=== PATIENT | male | born 1950 | race Caucasian/White ===

== ENCOUNTER 2017-08-05 07:21 | Day surgery (SDC) | payer MEDICARE, BC ==
[2017-08-02 09:36] VITALS: BMI 28.3
[2017-08-05] MEDS ORDERED: CEFAZOLIN/Water 2 GM/20 ML SYRINGE ONE (09:54)
[2017-08-05 10:06] LABS: #Eosinphils 0.1 thou/uL (0.0-0.7); #Lymphocytes 1.2 thou/uL (1.20-3.40); #Monocytes 0.5 thou/uL (0.11-0.59); #Neutrophils 2.9 thou/uL (1.40-6.50); %Basophils 0.7 % (0.0-1.0); %Eosinophils 2.2 % (0.0-10.0); %Lymphocytes 24.6 % (21.0-51.0); %Monocytes 10.3 % (0.0-10.0); %Neutrophils 62.1 % (42.0-75.0); Hemoglobin 13.6 g/dL (14.0-18.0); Mean Corpuscular HGB CONC 34.9 g/dL (32.0-36.0); Mean Corpuscular Hemoglobin 31.9 pg (27.0-31.0); Mean Corpuscular Volume 91.5 fl (80.0-94.0); Mean Platelet Volume 9.1 fL (7.4-10.4); Platelet Count 137 thou/uL (130-400); RBC Distribution Width 11.5 % (11.5-14.5); Red Blood Cell (RBC) Count 4.25 mill/uL (4.70-6.10); White Blood Cell (WBC) Count 4.7 thou/uL (4.8-10.8)
[2017-08-05 10:30] LABS: Anion Gap 12 mmol/L (10-20); BUN (Urea Nitrogen) 15 mg/dL (8.4-25.7); Calc. Creatinine Clearance 123 mL/min (70-130); Calcium 9.4 mg/dL (7.8-10.44); Carbon Dioxide 22 mmol/L (23-31); Chloride 110 mmol/L (98-107); Estimated GFR-MDRD Greater than 90; Glucose 136 mg/dL (80-115); Potassium 4.1 mmol/L (3.5-5.1); Sodium 140 mmol/L (136-145)
[2017-08-05] MEDS ORDERED: Fentanyl 250 MCG/5 ML VIAL ONE ×2 (13:02→16:09)
[2017-08-05] MEDS ORDERED: Lidocaine 2% Jelly 5 ML TUBE ONE (13:07)
[2017-08-05] MEDS ORDERED: Phenylephrine HCL 10 MG/ML VIAL ONE (13:09)
--- NOTE | 2017-08-05 14:38 | OP ---
DATE OF PROCEDURE: 08/05/2017 SURGEON: Carlos Alberto Cazares M.D. STATISTICAL ASSISTANT: Xavier Quiros PROCEDURE: L3-4 laminectomy. PROCEDURE IN DETAIL: The patient was brought to the operating room and intubated. He was rolled in the prone position on gel-filled chest rolls. Incision made exposing L3-4 and our level was confirme d by x-ray. We performed complete L4, and inferior L3 laminectomies, completely decompressing the ne ural elements. The wound was then extensively irrigated, immaculate hemostasis was secured. Vancomy anitha powder was applied and the wound was closed in anatomic layers.
[2017-08-05] MEDS ORDERED: Promethazine HCl 25 MG/ML VIAL IM PRN ×2 (14:48→19:01)
[2017-08-05] MEDS ORDERED: Promethazine HCl 25 MG/ML VIAL SLOW IVP PRN (14:48)
[2017-08-05] MEDS ORDERED: Ondansetron HCl/PF 4 MG/2 ML Vial IVP PRN (14:48)
[2017-08-05] MEDS ORDERED: PHENYLEPHRINE-NS 100 MCG/ML 10 ML SYRINGE ONE (14:52)
[2017-08-05] MEDS ORDERED: Glycopyrrolate 0.2 MG/ML 5 ML SYRINGE ONE (14:52)
[2017-08-05] MEDS ORDERED: Ondansetron HCl/PF 4 MG/2 ML Vial ONE (14:52)
[2017-08-05] MEDS ORDERED: Dexamethasone 20 MG/5 ML VIAL ONE (14:52)
[2017-08-05] MEDS ORDERED: Lidocaine 1% PF 5 ML VIAL ONE (14:52)
[2017-08-05] MEDS ORDERED: Propofol 200 MG/20 ML VIAL ONE (14:52)
[2017-08-05] MEDS ORDERED: HYDROmorphone 0.5 MG/0.5 ML SYRINGE ONE ×5 (15:07→15:46)
[2017-08-05] MEDS ORDERED: Ketorolac Tromethamine 30 MG/ML VIAL ONE (15:53)
[2017-08-05] MEDS ORDERED: Milk Of Magnesia 30 ML UDCUP PO PRN (19:01)
[2017-08-05] MEDS ORDERED: Meperidine HCl/PF 25 MG/ML VIAL SLOW IVP PRN (19:01)
[2017-08-05] MEDS ORDERED: diphenhydrAMINE 25 MG CAP PO PRN (19:01)
[2017-08-05] MEDS ORDERED: Mag-Al 1200 mg/1200 mg/30 ML UDCUP PO PRN (19:01)
[2017-08-05] MEDS ORDERED: traMADol HCl 50 MG TAB PO PRN ×2 (19:01)
[2017-08-05] MEDS ORDERED: diphenhydrAMINE 50 MG/ML VIAL IVP PRN (19:01)
[2017-08-05] MEDS ORDERED: Ondansetron HCl/PF 4 MG/2 ML Vial IM PRN (19:01)
[2017-08-05] MEDS ORDERED: HYDROcodone/Acetaminophen 7.5/325 mg Tablet PO PRN (19:01)
[2017-08-05] MEDS ORDERED: tiZANidine HCl 4 MG TAB PO PRN (19:01)
[2017-08-05] MEDS ORDERED: Promethazine HCl 12.5 MG SUPP PR PRN (19:01)
[2017-08-05] MEDS ORDERED: Promethazine 25 MG TAB PO PRN (19:01)
--- NOTE | 2017-08-05 20:05 | EKG ---
Test Reason : PREOP Blood Pressure : / mmHG Vent. Rate : 057 BPM Atrial Rate : 057 BPM P-R Int : 154 ms QRS Dur : 096 ms QT Int : 412 ms P-R-T Axes : -15 025 014 degrees QTc Int : 401 ms Sinus bradycardia Otherwise normal ECG No previous ECGs available Confirmed by SEVERIANO KONG, DR. Melton ([id number]) on 08/05/2017 8:05:25 PM Referred By: Carlos Alberto Cazares Confirmed By:DR. Geronimo العلي MD
[2017-08-05] MEDS: Sodium Chloride 0.9% 1,000 ML IV SCH (20:23)
[2017-08-05] MEDS: CEFAZOLIN/Water 2 GM/20 ML SYRINGE SLOW IVP SCH (20:34)
[2017-08-06] MEDS: Sodium Chloride 0.9% 1,000 ML IV SCH ×2 (01:28→08:57)
[2017-08-06] MEDS: HYDROcodone/Acetaminophen 7.5/325 mg Tablet PO PRN ×2 (01:29→07:45)
[2017-08-06] MEDS: CEFAZOLIN/Water 2 GM/20 ML SYRINGE SLOW IVP SCH (04:37)
[2017-08-06 09:26] VITALS: BP 135/81; TEMP 97.7
== END 2017-08-06 11:27 | disposition home or self-care (01) ==
LOC: SDC 07:21 → SURG B 18:05 → SDC 08-06 11:27
PROVIDERS: ATTEND Neurological Surgery
PROC: 01NB0ZZ Release Lumbar Nerve, Open Approach (ICD-10-PCS; principal; 2017-08-05)
DX: M48.061 Spinal stenosis, lumbar region without neurogenic claudication (principal); I10 Essential (primary) hypertension; E78.5 Hyperlipidemia, unspecified; I25.10 Atherosclerotic heart disease of native coronary artery without angina pectoris; K21.9 Gastro-esophageal reflux disease without esophagitis; I25.2 Old myocardial infarction; M19.90 Unspecified osteoarthritis, unspecified site; Z88.1 Allergy status to other antibiotic agents; Z88.5 Allergy status to narcotic agent; Z96.641 Presence of right artificial hip joint; Z87.891 Personal history of nicotine dependence; Z79.82 Long term (current) use of aspirin; Z79.899 Other long term (current) drug therapy
CPT/HCPCS: 76001; 80048; 85025; 93005; 93010; 96374; J1100; J1170; J1885; J2001; J2370; J2405; J2704; J3010; J3370

== ENCOUNTER 2021-12-13 12:37 | Outpatient (CLI) | payer MEDICARE ==
[2021-12-13 15:04] LABS: Hemoglobin 12.2 g/dL (13.5-17.5); Mean Corpuscular HGB CONC 35.4 g/dL (32.0-36.0); Mean Corpuscular Hemoglobin 30.8 pg (27.0-33.0); Mean Corpuscular Volume 87.1 fl (81.2-95.1); Mean Platelet Volume 11.8 fl (7.4-10.4); Platelet Count 152 10x3/uL (150-450); RBC Distribution Width 12.3 % (11.5-14.5); Red Blood Cell (RBC) Count 3.96 10x6/uL (4.32-5.72); White Blood Cell (WBC) Count 5.7 10x3/uL (3.5-10.5)
[2021-12-13 15:29] LABS: Anion Gap 10 mmol/L (10-20); BUN (Urea Nitrogen) 11 mg/dL (8.4-25.7); Calc. Creatinine Clearance 0 mL/min (70-130); Carbon Dioxide 24 mmol/L (23-31); Chloride 108 mmol/L (98-107); Estimated GFR 95; Glucose 118 mg/dL (83-110); Potassium 4.2 mmol/L (3.5-5.1); Sodium 138 mmol/L (136-145)
== END 2021-12-13 12:38 | disposition home or self-care (01) ==
LOC: LABBT 12:37
PROVIDERS: ATTEND Neurological Surgery
DX: Z01.818 Encounter for other preprocedural examination (principal); M54.12 Radiculopathy, cervical region; Z20.822 Contact with and (suspected) exposure to COVID-19
CPT/HCPCS: 80048; 85027; 87811; 93005; 93010

== ENCOUNTER 2021-12-18 06:13 | Inpatient (IN) | payer MEDICARE ==
[2021-12-15 10:38] VITALS: BMI 30.1
[2021-12-18] MEDS ORDERED: Levofloxacin 500 mg/D5W 100 ml Premix Bag ONE ×2 (07:13→08:08)
[2021-12-18] MEDS ORDERED: fentaNYL Citrate/PF 100 MCG/2 ML SYRINGE ONE ×2 (07:15→07:26)
[2021-12-18] MEDS ORDERED: Acetaminophen 325 MG TAB PO PRN (07:18)
[2021-12-18] MEDS ORDERED: Ondansetron PF 4 MG/2 ML Vial IVP PRN (07:18)
[2021-12-18] MEDS ORDERED: HYDROcodone/Acetaminophen 7.5/325 mg Tablet PO PRN (07:18)
[2021-12-18] MEDS ORDERED: Milk Of Magnesia 30 ML UDCUP PO PRN (07:18)
[2021-12-18] MEDS ORDERED: Promethazine 25 MG TAB PO PRN (07:18)
[2021-12-18] MEDS ORDERED: Fentanyl 100 MCG/2 ML VIAL SLOW IVP PRN (07:18)
[2021-12-18] MEDS ORDERED: diphenhydrAMINE 50 MG/ML VIAL IVP PRN (07:18)
[2021-12-18] MEDS ORDERED: traMADol HCl 50 MG TAB PO PRN (07:18)
[2021-12-18] MEDS ORDERED: Dextrose 5% in Water 1,000 ML IV PRN (07:22)
[2021-12-18] MEDS ORDERED: HumaLOG 300 UNITS/3 ML VIAL SC PRN (07:22)
[2021-12-18] MEDS ORDERED: Dextrose 50% Abboject 50 ML SYRINGE SLOW IVP PRN (07:22)
[2021-12-18] MEDS ORDERED: Clindamycin/D5W 900 mg/50 ml Premix Bag ONE (08:08)
[2021-12-18] MEDS ORDERED: Rocuronium Bromide 10 MG/ML (10ML VIAL) ONE (08:15)
[2021-12-18] MEDS ORDERED: Dexamethasone 20 MG/5 ML VIAL ONE (08:15)
[2021-12-18] MEDS ORDERED: PROPOFOL 200 MG/20 ML VIAL ONE (08:15)
[2021-12-18] MEDS ORDERED: Lidocaine 1% PF 5 ML VIAL ONE (08:15)
[2021-12-18] MEDS ORDERED: Ondansetron PF 4 MG/2 ML Vial ONE (08:15)
[2021-12-18] MEDS ORDERED: SUGAMMADEX SODIUM 200 MG/2 ML VIAL ONE (09:24)
[2021-12-18] MEDS ORDERED: Fentanyl 100 MCG/2 ML VIAL ONE ×5 (10:02→12:48)
[2021-12-18] MEDS ORDERED: HYDROcodone/Acetaminophen 5/325 mg Tablet PO PRN ×2 (14:05→14:06)
[2021-12-18] MEDS ORDERED: tiZANidine HCl 4 MG TAB PO PRN (14:10)
[2021-12-18] MEDS: HYDROcodone/Acetaminophen 7.5/325 mg Tablet PO PRN ×2 (14:25→23:17)
[2021-12-18] MEDS: Carvedilol 25 MG TAB PO SCH ×2 (14:41→16:28)
[2021-12-18] MEDS: Sodium Chloride 0.9% 1,000 ML IV SCH ×2 (14:41→22:18)
[2021-12-18] MEDS: Famotidine 20 MG TAB PO SCH ×2 (14:42→21:41)
[2021-12-18] MEDS: Lisinopril 20 MG TAB PO SCH (14:42)
[2021-12-18] MEDS: Clindamycin/D5W 900 MG in Premix Bag 1 BAG IVPB SCH ×2 (16:28→23:17)
[2021-12-18] MEDS ORDERED: Nortriptyline HCl 25 MG CAP PO SCH ×2 (21:00)
[2021-12-18] MEDS ORDERED: Famotidine 20 MG TAB PO SCH (21:00)
[2021-12-18] MEDS ORDERED: Atorvastatin Calcium 40 MG TAB PO SCH (21:00)
[2021-12-18] MEDS ORDERED: Carvedilol 25 MG TAB PO SCH (21:00)
[2021-12-19] MEDS: HYDROcodone/Acetaminophen 7.5/325 mg Tablet PO PRN (03:19)
[2021-12-19] MEDS ORDERED: Tamsulosin HCl 0.4 MG CAP PO SCH (06:00)
[2021-12-19] MEDS ORDERED: HYDROcodone/Acetaminophen 10/325 mg Tablet PO PRN (06:17)
[2021-12-19] MEDS: Dexamethasone 4 mg/ml Vial SLOW IVP SCH ×2 (06:37→11:50)
[2021-12-19 08:13] VITALS: TEMP 98.3
[2021-12-19] MEDS: Famotidine 20 MG TAB PO SCH (08:37)
[2021-12-19] MEDS: Lisinopril 20 MG TAB PO SCH (08:37)
[2021-12-19] MEDS: Carvedilol 25 MG TAB PO SCH (08:37)
[2021-12-19] MEDS: HYDROcodone/Acetaminophen 10/325 mg Tablet PO PRN ×2 (08:38→16:11)
[2021-12-19] MEDS ORDERED: Lisinopril 20 MG TAB PO SCH (09:00)
[2021-12-19] MEDS ORDERED: Alogliptin 6.25 MG TAB PO SCH (09:00)
[2021-12-19] MEDS ORDERED: Multivitamin W/ Minerals 1 TAB PO SCH (09:00)
[2021-12-19] MEDS ORDERED: sitaGLIPtin Phosphate 25 MG TAB PO SCH ×2 (09:00→10:04)
[2021-12-19] MEDS: Gabapentin 300 MG CAP PO SCH ×2 (09:38→15:17)
[2021-12-19] MEDS: Sodium Chloride 0.9% 1,000 ML IV SCH (10:59)
[2021-12-19] MEDS ORDERED: Ketorolac Tromethamine 30 MG/ML VIAL IVP SCH (12:00)
[2021-12-19 12:12] VITALS: BP 124/75
[2021-12-19] MEDS ORDERED: Insulin Glargine 30 UNITS/0.3 ML VIAL SC SCH (21:00)
== END 2021-12-19 16:10 | disposition home or self-care (01) | DRG 473 ==
LOC: SDC 06:13 → SURG B 07:24
PROVIDERS: ADMIT Neurological Surgery; ATTEND Neurological Surgery
PROC: 0RG20A0 Fusion of 2 or more Cervical Vertebral Joints with Interbody Fusion Device, Anterior Approach, Anterior Column, Open Approach (ICD-10-PCS; principal; 2021-12-18)
PROC: 0RB30ZZ Excision of Cervical Vertebral Disc, Open Approach (ICD-10-PCS; 2021-12-18)
DX: M50.31 Other cervical disc degeneration, high cervical region (principal); M54.12 Radiculopathy, cervical region; Z20.822 Contact with and (suspected) exposure to COVID-19; I10 Essential (primary) hypertension; E78.5 Hyperlipidemia, unspecified; K21.9 Gastro-esophageal reflux disease without esophagitis; I25.10 Atherosclerotic heart disease of native coronary artery without angina pectoris; Z96.641 Presence of right artificial hip joint; M48.061 Spinal stenosis, lumbar region without neurogenic claudication; E11.65 Type 2 diabetes mellitus with hyperglycemia; G89.29 Other chronic pain; R13.10 Dysphagia, unspecified; Z88.5 Allergy status to narcotic agent; Z88.8 Allergy status to other drugs, medicaments and biological substances; Z91.040 Latex allergy status; Z95.5 Presence of coronary angioplasty implant and graft; Z79.899 Other long term (current) drug therapy; Z79.84 Long term (current) use of oral hypoglycemic drugs; Z98.890 Other specified postprocedural states
CPT/HCPCS: 36416; 76000; C1713; J1100; J1885; J1956; J2405; J2704; J3010; J3490